=== PATIENT | female | born 1995 | race Caucasian/White ===

== ENCOUNTER 2017-10-02 16:45 | Emergency (ER) | payer OTHER ==
[~2017-10-02] VITALS: Ht 160 cm; Wt 72.6 kg
[~2017-10-02 16:45] MED LIST: INTESTINEX1 CAP PO; MOTRIN800 MG PO; PROTONIX40 MG PO; VENTOLIN HFA18 GM
== END 2017-10-02 19:41 ==
LOC: ER 16:45
DX: S93.492A Sprain of other ligament of left ankle, initial encounter (principal); S80.12XA Contusion of left lower leg, initial encounter; X50.0XXA Overexertion from strenuous movement or load, initial encounter; Y93.89 Activity, other specified; Y92.488 Other paved roadways as the place of occurrence of the external cause; Y99.8 Other external cause status